=== PATIENT | female | born 1950 | race Caucasian/White ===

== ENCOUNTER 2017-10-14 19:06 | Emergency (ER) | payer MEDICARE, OTHER ==
[~2017-10-14] VITALS: Ht 157.5 cm; Wt 56.7 kg
[~2017-10-14 19:06] MED LIST: ALBU90I INH; ALPR.5 PO; ALPR1 PO; AZIT250 PO; BISA5EC PO; BUSP15 PO; HYDACE10B PO; HYDACE5 PO; LAMO100 PO; LAMO25 PO; LEVSOD125 PO; LOVA20 PO; NEFA100 PO; OXYB5 PO; PROACE100 PO; RXHYDACE PO; Zofran Odt4 MG PO
[2017-10-14] MEDS ORDERED: MSM1000 MG PO (19:26)
[2017-10-14] MEDS ORDERED: CLON.1 PO (19:27)
[2017-10-14] MEDS ORDERED: ACET500 (19:28)
[2017-10-14] MEDS ORDERED: OLOP.1OPSO BOTHEYES (19:28)
[2017-10-14] MEDS ORDERED: Garlic1 EAC1 PO (19:29)
[2017-10-14] MEDS ORDERED: SENN187 PO (19:30)
== END 2017-10-14 22:35 | disposition short-term general hospital (02) ==
LOC: ER 19:06
DX: S73.015A Posterior dislocation of left hip, initial encounter (principal); X58.XXXA Exposure to other specified factors, initial encounter; Z88.2 Allergy status to sulfonamides; Z88.1 Allergy status to other antibiotic agents; Z88.8 Allergy status to other drugs, medicaments and biological substances; Z79.899 Other long term (current) drug therapy; F41.9 Anxiety disorder, unspecified; F32.9 Major depressive disorder, single episode, unspecified; Z87.891 Personal history of nicotine dependence
CPT/HCPCS: 73502; 96374; 96375; 96376; 99285; J2060; J3010

== ENCOUNTER → 2019-09-21 | Outpatient (CLI) | payer MEDICARE, OTHER ==
[~2019-09-21] MED LIST changes: +ACET500; +CLON.1 PO; +Garlic1 EAC1 PO; +MSM1000 MG PO; +OLOP.1OPSO BOTHEYES; +SENN187 PO
== END | disposition home or self-care (01) ==
LOC: LAB EV 12:37 → LAB SHORT 12:37
DX: N39.0 Urinary tract infection, site not specified (principal)
CPT/HCPCS: 87077; 87086; 87147; 87186

== ENCOUNTER → 2019-10-05 | Outpatient (CLI) | payer MEDICARE, OTHER | END | disposition home or self-care (01) | LOC: LAB SHORT 13:31 → OLS 13:31 → LAB FUT 10-03 12:50 | DX: R30.0 Dysuria (principal) | CPT/HCPCS: 87086 ==

== ENCOUNTER → 2019-12-30 | Outpatient (CLI) | payer MEDICARE, OTHER | END | disposition home or self-care (01) | LOC: LAB SRC 14:48 → LAB SHORT 14:48 | DX: N39.0 Urinary tract infection, site not specified (principal) | CPT/HCPCS: 87086 ==

== ENCOUNTER 2020-02-20 08:36 | Inpatient (IN) | payer MEDICARE, OTHER ==
[~2020-02-20] VITALS: Ht 154.9 cm; Wt 48.9 kg
[2020-02-20 09:15] LABS: BASOPHILS ABSOLUTE AUTO 0.04 K/mm3 (0.00-0.23); BASOPHILS PERCENT AUTO 0 % (0-2); EOSINOPHILS ABSOLUTE AUTO 0.01 K/mm3 (0.00-0.68); EOSINOPHILS PERCENT AUTO 0 % (0-6); Hemoglobin 14.1 g/dL (11.5-16.0); IMMATURE GRAN ABSOLUTE AUTO 0.06 K/mm3 (0.00-0.10); IMMATURE GRAN PERCENT AUTO 1 % (0-1); LYMPHOCYTES ABSOLUTE AUTO 1.55 K/mm3 (0.84-5.20); LYMPHOCYTES PERCENT AUTO 13 % (21-46); MONOCYTES ABSOLUTE AUTO 0.64 K/mm3 (0.16-1.47); MONOCYTES PERCENT AUTO 6 % (4-13); Mean Corpuscular HGB 30.6 pg (26.0-34.0); Mean Corpuscular HGB Conc 33.6 g/dL (31.5-36.5); Mean Corpuscular Volume 91 fL (80-100); Mean Platelet Volume 10.1 fL (9.1-12.4); NEUTROPHILS PERCENT AUTO 80 % (41-73); Platelet Count 299 K/mm3 (150-400); RDW Coefficient Variation 13.2 % (11.7-14.2); Red Blood Cell Count 4.61 M/mm3 (3.80-5.20)
[2020-02-20 09:23] LABS: Alanine Aminotransfer (ALT/SGP 6 U/L (12-78); Albumin, Blood 2.7 g/dL (3.4-5.0); Albumin/Globulin Ratio 0.9 (0.8-1.8); Alk Phos 46 U/L (50-136); Anion Gap 15 mmol/L (6-16); Aspartate Aminotrans (AST/SGOT 17 U/L (12-37); Bilirubin, Total 0.5 mg/dL (0.1-1.0); Blood Urea Nitrogen 20 mg/dL (8-24); Bun/Creatinine Ratio 32.7 (12.0-20.0); CO2, Blood 16 mmol/L (21-32); Chloride, Blood 112 mmol/L (98-108); Creatinine, Blood 0.61 mg/dL (0.40-1.00); Globulin, Blood 3.1 g/dL (2.2-4.0); Glomerular Filtration Rate >60 (60-); Glucose, Blood 125 mg/dL (70-99); Potassium, Blood 2.8 mmol/L (3.5-5.5); Sodium, Blood 143 mmol/L (136-145); Total Protein, Blood 5.8 g/dL (6.4-8.2)
[2020-02-20 09:39] LABS: Source, Urine Catheter
[2020-02-20 09:44] LABS: Bilirubin, Urine Neg (Neg); Blood, Urine 2+ (Neg); Glucose Qualitative, Urine Neg (Neg); Ketones, Urine 4+ (Neg); Leukocyte Esterase, Urine 1+ (Neg); Nitrite, Urine Neg (Neg); Protein, Urine 3+ (Neg); Urobilinogen, Urine NORM (Normal)
[2020-02-20 09:51] LABS: Appearance, Urine Clear (Clear); Color, Urine Yellow (P-Yellow)
[2020-02-20 09:53] LABS: Bacteria Few /hpf; Squamous Epithelial Cells Few /hpf (Few)
[2020-02-20 10:19] LABS: Magnesium, Blood 1.7 mg/dL (1.6-2.4); Phosphorus, Blood 2.3 mg/dL (2.5-4.9)
[2020-02-20] MEDS ORDERED: NEFAZODONE HCL PO (14:59)
[2020-02-20] MEDS ORDERED: SUBVENITE200 M1 PO (15:00)
[2020-02-20] MEDS ORDERED: TROSPIUM CHLORI20 M1 PO (15:00)
[2020-02-20] MEDS ORDERED: ZADITOR5 M1 BOTHEYES (15:00)
[2020-02-20] MEDS ORDERED: ROSUVASTATIN CA10 MG PO (15:01)
[2020-02-20] MEDS ORDERED: SYNTHROID100 MC3 PO (15:01)
[2020-02-20 16:05] LABS: Base Excess Venous -10.4 mmol/L; Bicarbonate Venous 17.8 mmol/L (24.0-30.0); PCO2 Venous 20.5 mmHg (38-42); PO2 Venous 179 mmHg (38-42); pH Blood Venous 7.44 (7.34-7.37)
[2020-02-20] MEDS ORDERED: NEFA50 PO ×2 (17:25→17:26)
--- NOTE | 2020-02-20 22:30 | NUR ---
CARDIAC MONITORING PCU CAR SHUNTER REPORTS NSR AT [address] ELEVATION. PT IS CURRENTLY SLEEPING IN ROOM WITH NO ACUTE CHANGES NOTED. WILL CONTINUE TO MONITOR FOR CHANGES.
--- NOTE | 2020-02-21 03:58 | NUR ---
WARP DRESSER SUMMAR ALERT AND ORIENTED. REPORTS NAUSEA AND WEAKNESS, ZOFRAN X1. UNABLE TO TOLERATE PO MEDICATIONS AT THIS TIME. BP CONTINUES TO BE ELEVATED, IV LABETOLOL HELD DUE TO HR OF 60. DENIES PAIN OR DISCOMFORT. BREATHING IS UNLABORED. APPEARED TO SLEEP ALMOST ENTIRE SHIFT. NO ACUTE CHANGES. BED IN LOWEST POSITION WITH CALL LIGHT IN REACH. WILL CONTINUE TO MONITOR AND REPORT TO ONCOMING RN.
[2020-02-21 06:09] LABS: BASOPHILS ABSOLUTE AUTO 0.04 K/mm3 (0.00-0.23); BASOPHILS PERCENT AUTO 0 % (0-2); EOSINOPHILS ABSOLUTE AUTO 0.01 K/mm3 (0.00-0.68); EOSINOPHILS PERCENT AUTO 0 % (0-6); Hematocrit 44.1 % (33.0-51.0); IMMATURE GRAN ABSOLUTE AUTO 0.03 K/mm3 (0.00-0.10); IMMATURE GRAN PERCENT AUTO 0 % (0-1); LYMPHOCYTES ABSOLUTE AUTO 2.22 K/mm3 (0.84-5.20); LYMPHOCYTES PERCENT AUTO 21 % (21-46); MONOCYTES ABSOLUTE AUTO 0.94 K/mm3 (0.16-1.47); MONOCYTES PERCENT AUTO 9 % (4-13); Mean Corpuscular HGB 30.3 pg (26.0-34.0); Mean Corpuscular Volume 89 fL (80-100); Mean Platelet Volume 9.2 fL (9.1-12.4); NEUTROPHILS ABSOLUTE AUTO 7.38 K/mm3 (1.96-9.15); NEUTROPHILS PERCENT AUTO 69 % (41-73); Platelet Count 285 K/mm3 (150-400); RDW Coefficient Variation 13.1 % (11.7-14.2); RDW Standard Deviation 42.3 fL (35.1-46.3); Red Blood Cell Count 4.95 M/mm3 (3.80-5.20); White Blood Cell Count 10.62 K/mm3 (4.00-11.30)
[2020-02-21 06:30] LABS: Alanine Aminotransfer (ALT/SGP 7 U/L (12-78); Albumin, Blood 3.2 g/dL (3.4-5.0); Albumin/Globulin Ratio 0.8 (0.8-1.8); Alk Phos 52 U/L (50-136); Aspartate Aminotrans (AST/SGOT 27 U/L (12-37); Bilirubin, Total 0.6 mg/dL (0.1-1.0); Blood Urea Nitrogen 8 mg/dL (8-24); Bun/Creatinine Ratio 14.6 (12.0-20.0); CO2, Blood 19 mmol/L (21-32); Calcium, Blood 7.9 mg/dL (8.5-10.1); Chloride, Blood 101 mmol/L (98-108); Creatinine, Blood 0.55 mg/dL (0.40-1.00); Globulin, Blood 3.8 g/dL (2.2-4.0); Glomerular Filtration Rate >60 (60-); Glucose, Blood 117 mg/dL (70-99); Potassium, Blood 3.9 mmol/L (3.5-5.5)
[2020-02-21 06:31] LABS: Anion Gap 9 mmol/L (6-16); Sodium, Blood 129 mmol/L (136-145)
--- NOTE | 2020-02-21 08:46 | NUR ---
Patient did not eat breakfast this shift due to not feeling well. RN notified.
--- NOTE | 2020-02-21 13:20 | NUR ---
Patient did not eat lunch this shift. Patient stated she was not feeling well. RN notified.
--- NOTE | 2020-02-21 18:42 | NUR ---
SHIFT SUMMARY- PT IS A/O PLESANT AND COOPERATIVE. SHE IS NPO. HER BLOOD PRESSURES HAVE BEEN ELEVATED. SHE WENT FOR CT THIS MORNING. SHE IS RECIEVING PRN NAUSEA MEDICATION AND BP MEDS. SHE HAS SLEPT FOR MUCH OF THIS SHIFT.
[2020-02-22 05:16] LABS: Anion Gap 10 mmol/L (6-16); Blood Urea Nitrogen 6 mg/dL (8-24); Bun/Creatinine Ratio 9.3 (12.0-20.0); CO2, Blood 24 mmol/L (21-32); Calcium, Blood 8.6 mg/dL (8.5-10.1); Chloride, Blood 95 mmol/L (98-108); Creatinine, Blood 0.64 mg/dL (0.40-1.00); Glomerular Filtration Rate >60 (60-); Glucose, Blood 111 mg/dL (70-99); Potassium, Blood 2.7 mmol/L (3.5-5.5); Sodium, Blood 129 mmol/L (136-145)
--- NOTE | 2020-02-22 06:09 | NUR ---
SHIFT SUMMRY- PT. ALERT WITH INTERMITTENT CONFUSION. C/O N/V T/O THE SHIFT. MEDICATED PER EMAR WITH GOOD EFFECT. PT. REFUSED SCHEDULED PO MEDS OR ANY PO INTAKE LAST NIGHT. BECAME INCREASINGLY CONFUSED DURING THE NIGHT, PULLED OUT IV CATHETER, AND WAS ATTEMPTING TO LEAVE TO GO TO HER "ROOM". PT. WAS EASILY REDIRECTBLE. BP CHECKED Q4 PER ORDER. BP IMPROVED THIS AM. PT. APPEARS TO BE SLEEPING COMFORTABLE IN BED, NO APPARENT DISTRESS NOTED. CALL LIGHT WITHIN REACH, SIDE RAILS UPX2, AND BED ALARM ON FOR SAFETY. WILL CONT TO MONITOR.
--- NOTE | 2020-02-22 11:57 | NUR ---
History, Chart, Medications and Allergies reviewed before start of procedure.Lungs clear T/O to Auscultation. Patient confirms NPO status and agrees with scheduled surgery.
--- NOTE | 2020-02-22 12:07 | NUR ---
02/22/20 1207 Gema Gamez History, Chart, Medications and Allergies reviewed before start of procedure. Patient confirms NPO status and agrees with scheduled surgery. PATIENT DETERMINED TO BE ASA APPROPRIATE FOR PROPOFOL SEDATION PRIOR TO START OF PROCEDURE BY DR. HILARIO. 3-LEAD EKG REVIEWED WITH PHYSICIAN PRIOR TO START OF PROCEDURE. MONITOR INTACT WITH CONTINUOUS PULSE OXIMETRY AND INTERMITTENT BP.
--- NOTE | 2020-02-22 12:47 | NUR ---
DR HILARIO AT BEDSIDE SPEAKING WITH PATIENT.
--- NOTE | 2020-02-22 16:39 | NUR ---
SHIFT SUMMARY PATIENT DENIES PAIN, AND SHORTNESS OF BREATH. PATIENT MEDICATED X2 FOR NAUSEA. PATIENT WORKED WITH PT/OT TODAY. PATIENT UP SBA W/FWW TO BR. PATIENT HAD EGD TODAY, NO ACUTE PROCESS FOUND. STRICTURE DILATED AND BIOPSIES TAKEN. PATIENT HAD DIFFICULT TIME TOLERATING IV POTASSIUM EVEN AT SLOWED RATE. CALL TO DR. LACY, NEW ORDER FOR PO LIQUID POTASSIUM GIVEN.
--- NOTE | 2020-02-22 17:23 | NUR ---
Initial spiritual care note: Mrs. Parrish is a analia woman who tells me she is hopeful she'll get better. She is very happy in her marriage and feels well-loved and supported. I facilitated an exploration of her usha and offered prayer. She appeared uplifted by our conversation and was appreciaitve. I will remain available.
[2020-02-23 05:41] LABS: Anion Gap 11 mmol/L (6-16); Blood Urea Nitrogen 7 mg/dL (8-24); Bun/Creatinine Ratio 9.9 (12.0-20.0); CO2, Blood 26 mmol/L (21-32); Calcium, Blood 8.5 mg/dL (8.5-10.1); Chloride, Blood 95 mmol/L (98-108); Creatinine, Blood 0.71 mg/dL (0.40-1.00); Glomerular Filtration Rate >60 (60-); Glucose, Blood 96 mg/dL (70-99); Sodium, Blood 132 mmol/L (136-145)
--- NOTE | 2020-02-23 06:20 | NUR ---
SHIFT SUMMARY PT IS A 69 Y/O FEMALE, ADMITTED FOR WEAKNESS AND INTRACTABLE N/V. SHE IS A&O X 3, PT REPORTED NAUSEA THROUGH THE NIGHT, AND WAS MEDICATED TWICE WITH PRN REGLAN, AND REFUSED HER HS ORAL MEDS. NO COMPLAINTS OF ACUTE PAIN OR SOB. VITAL SIGNS STABLE. TELE SHOWED NSR IN THE 70S. NO OTHER ACUTE CHANGES IN PT CONDITION NOTED. WILL CONTINUE TO MONITOR AND TREAT PER EMAR UNTIL HAND OFF TO DAY SHIFT RN.
--- NOTE | 2020-02-23 16:49 | NUR ---
Spiritual care note: Eneida states she still feels weak and this bothers her. She is concerned about her future. I provided gentle admitting counselor and spiritual direction. Prayer was well received. Eneida appeared a bit brighter when visit concluded. Conversation and companionship was helpful. I will continue to see Eneida in coming days.
--- NOTE | 2020-02-23 17:22 | NUR ---
SHIFT SUMMARY PATIENT DENIES PAIN, MEDICATED X3 FOR NAUSEA WITH IV PRN'S. REFUSED ORAL MEDICATION EXCEPT AMLODIPINE THIS AM. POOR PO INTAKE. NAPPING OFF AND ON DURING SHIFT. IV POTASSIUM REPLACEMENT COMPLETED. PATIENT UP SBA TO BR W/FWW.
[2020-02-24 05:36] LABS: Anion Gap 9 mmol/L (6-16); Blood Urea Nitrogen 10 mg/dL (8-24); Bun/Creatinine Ratio 16.1 (12.0-20.0); CO2, Blood 24 mmol/L (21-32); Calcium, Blood 8.4 mg/dL (8.5-10.1); Chloride, Blood 96 mmol/L (98-108); Creatinine, Blood 0.62 mg/dL (0.40-1.00); Glomerular Filtration Rate >60 (60-); Glucose, Blood 88 mg/dL (70-99); Potassium, Blood 3.5 mmol/L (3.5-5.5); Sodium, Blood 129 mmol/L (136-145)
--- NOTE | 2020-02-24 07:00 | NUR ---
SHIFT SUMMARY PATIENT STAYED IN BED ALL NIGHT AND DID NOT GET UP. SHE REPORTS NOT BEING ABLE TO SLEEP OVERNIGHT DUE TO THE NAUSEA THAT SHE WAS FEELING. PATIENT MEDICATED PER EMAR. SHE HAD NO COMPLAINTS OF PAIN. IV PATENT AND FLUSHED, BED IN LOWEST POSITION WITH WHEELS LOCKED AND ALARM ON. CALL LIGHT WITHIN REACH. REPORT GIVEN TO ONCOMING RN.
[2020-02-24] MEDS ORDERED: AMLO10 PO (14:54)
[2020-02-24] MEDS ORDERED: MIRT15ST PO (14:55)
[2020-02-24] MEDS ORDERED: METO10 PO (14:55)
[2020-02-24] MEDS ORDERED: PANT20 PO (14:56)
[2020-02-24] MEDS ORDERED: ONDA4ODT MM (14:56)
[2020-02-24] MEDS ORDERED: POTA10T PO (14:57)
--- NOTE | 2020-02-24 16:04 | NUR ---
DISCHARGE: PATIENT AND VERBALIZED UNDERSTANDING OF DISCHARGE INSTRUCTIONS. PATIENT AGAIN, STRONGLY ENCOURAGED BY THIS RN TO EAT SMALL, FREQUENT MEALS, AND WAS AGREEABLE. ALL PERSONAL BELONGINGS IN PT POSSESSION AT TIME OF DISCHARGE.
== END 2020-02-24 16:06 | disposition home or self-care (01) | DRG 381 ==
LOC: ER 08:36 → MEDS 08:37 → ERHOLD 08:37 → MEDS 17:10 → ENPENDDIS 02-24 14:04 → MEDS 02-24 16:06
PROVIDERS: Emergency Medicine; Internal Medicine; Internal Medicine Gastroenterology; Nurse Practitioner Acute Care; Physician Assistant; ADMIT Family Medicine
PROC: 0D748ZZ Dilation of Esophagogastric Junction, Via Natural or Artificial Opening Endoscopic (ICD-10-PCS; 2020-02-22)
PROC: 0DB58ZX Excision of Esophagus, Via Natural or Artificial Opening Endoscopic, Diagnostic (ICD-10-PCS; principal; 2020-02-22 12:00)
PROC: 0DB68ZX Excision of Stomach, Via Natural or Artificial Opening Endoscopic, Diagnostic (ICD-10-PCS; 2020-02-22 12:00)
DX: K22.70 Barrett's esophagus without dysplasia (principal); E87.2 Acidosis; E46 Unspecified protein-calorie malnutrition; E87.1 Hypo-osmolality and hyponatremia; Z68.1 Body mass index [BMI] 19.9 or less, adult; I10 Essential (primary) hypertension; I16.0 Hypertensive urgency; Z20.828 Contact with and (suspected) exposure to other viral communicable diseases; E03.9 Hypothyroidism, unspecified; G60.0 Hereditary motor and sensory neuropathy; K22.2 Esophageal obstruction; E87.6 Hypokalemia; E83.42 Hypomagnesemia; M19.90 Unspecified osteoarthritis, unspecified site; F32.9 Major depressive disorder, single episode, unspecified; F51.04 Psychophysiologic insomnia; Z66 Do not resuscitate; E86.9 Volume depletion, unspecified; Z87.891 Personal history of nicotine dependence
CPT/HCPCS: 36415; 71250; 74018; 74176; 80048; 80053; 80175; 81001; 82803; 83690; 83735; 84100; 84439; 84443; 85025; 87086; 88305; 88312; 88342; 93005; 93010; 96361; 96365; 96366; 96367; 96372-59; 96375; 96376; 97110; 97162; 97166; 97530; 97535; 99285-25; C1726; C9113; G0378; J0780; J1650; J2001; J2405; J2550; J2704; J2765; J3475; J3480; J7030; J7042; J7050; J7060; J7120; P9612; U0002

== ENCOUNTER 2020-03-17 13:26 | Emergency (ER) | payer MEDICARE, OTHER ==
[~2020-03-17] VITALS: Ht 157.5 cm; Wt 43.1 kg
[~2020-03-17 13:26] MED LIST changes: +AMLO10 PO; +METO10 PO; +MIRT15ST PO; +NEFA50 PO; +NEFAZODONE HCL PO; +ONDA4ODT MM; +PANT20 PO; +POTA10T PO; +ROSUVASTATIN CA10 MG PO; +SUBVENITE200 M1 PO; +SYNTHROID100 MC3 PO; +TROSPIUM CHLORI20 M1 PO; +ZADITOR5 M1 BOTHEYES
[2020-03-17 14:01] LABS: BASOPHILS ABSOLUTE AUTO 0.01 K/mm3 (0.00-0.23); BASOPHILS PERCENT AUTO 0 % (0-2); EOSINOPHILS ABSOLUTE AUTO 0.01 K/mm3 (0.00-0.68); EOSINOPHILS PERCENT AUTO 0 % (0-6); Hematocrit 40.9 % (33.0-51.0); Hemoglobin 13.3 g/dL (11.5-16.0); IMMATURE GRAN ABSOLUTE AUTO 0.08 K/mm3 (0.00-0.10); IMMATURE GRAN PERCENT AUTO 1 % (0-1); LYMPHOCYTES ABSOLUTE AUTO 0.95 K/mm3 (0.84-5.20); LYMPHOCYTES PERCENT AUTO 10 % (21-46); MONOCYTES ABSOLUTE AUTO 0.31 K/mm3 (0.16-1.47); MONOCYTES PERCENT AUTO 3 % (4-13); Mean Corpuscular HGB 29.5 pg (26.0-34.0); Mean Corpuscular HGB Conc 32.5 g/dL (31.5-36.5); Mean Corpuscular Volume 91 fL (80-100); Mean Platelet Volume 9.3 fL (9.1-12.4); NEUTROPHILS ABSOLUTE AUTO 8.34 K/mm3 (1.96-9.15); NEUTROPHILS PERCENT AUTO 86 % (41-73); NRBC ABSOLUTE 0.03 K/mm3 (0.00-0.02); NRBC Auto 0.3 /100 WBC (0.0-0.2); Platelet Count 435 K/mm3 (150-400); RDW Coefficient Variation 14.6 % (11.7-14.2); RDW Standard Deviation 48.2 fL (35.1-46.3); Red Blood Cell Count 4.51 M/mm3 (3.80-5.20)
[2020-03-17 15:33] LABS: Source, Urine Clean Catch
[2020-03-17 15:44] LABS: Appearance, Urine Cloudy (Clear); Bilirubin, Urine Neg (Neg); Blood, Urine 5+ (Neg); Color, Urine Yellow (P-Yellow); Glucose Qualitative, Urine Neg (Neg); Ketones, Urine 4+ (Neg); Leukocyte Esterase, Urine 3+ (Neg); Nitrite, Urine Neg (Neg); Protein, Urine 3+ (Neg); Specific Gravity, Urine 1.025 (1.003-1.022); Urobilinogen, Urine NORM (Normal)
[2020-03-17 16:05] LABS: Red Blood Cells, Urine 25-50 /hpf (0-2); Squamous Epithelial Cells Rare /hpf (Few)
[2020-03-17 16:06] LABS: Amorphous Mod (0-Heavy); Bacteria Mod /hpf; Renal Epithelial Rare /hpf (0-Rare); Transitional Epithelial Cells Few /hpf (0-Rare)
[2020-03-17 16:44] LABS: Alanine Aminotransfer (ALT/SGP 13 U/L (12-78); Albumin, Blood 3.4 g/dL (3.4-5.0); Albumin/Globulin Ratio 0.8 (0.8-1.8); Alk Phos 72 U/L (50-136); Anion Gap 18 mmol/L (6-16); Aspartate Aminotrans (AST/SGOT 21 U/L (12-37); Bilirubin, Total 0.9 mg/dL (0.1-1.0); Blood Urea Nitrogen 22 mg/dL (8-24); Bun/Creatinine Ratio 37.5 (12.0-20.0); CO2, Blood 18 mmol/L (21-32); Chloride, Blood 107 mmol/L (98-108); Creatinine, Blood 0.59 mg/dL (0.40-1.00); Globulin, Blood 4.1 g/dL (2.2-4.0); Glomerular Filtration Rate >60 (60-); Glucose, Blood 113 mg/dL (70-99); Potassium, Blood 3.3 mmol/L (3.5-5.5); Sodium, Blood 143 mmol/L (136-145); Total Protein, Blood 7.5 g/dL (6.4-8.2)
[2020-03-17] MEDS ORDERED: PROC5 PO (17:04)
[2020-03-17] MEDS ORDERED: CEPH500 PO (17:04)
== END 2020-03-17 17:20 | disposition home or self-care (01) ==
LOC: ER 13:26
PROVIDERS: Emergency Medicine
DX: E86.0 Dehydration (principal); N39.0 Urinary tract infection, site not specified; E87.6 Hypokalemia; I10 Essential (primary) hypertension; E03.9 Hypothyroidism, unspecified; F41.9 Anxiety disorder, unspecified; F32.9 Major depressive disorder, single episode, unspecified; Z87.891 Personal history of nicotine dependence; Z88.0 Allergy status to penicillin; Z79.899 Other long term (current) drug therapy
CPT/HCPCS: 51701; 80053; 81001; 83690; 84439; 84443; 85025; 87077; 87086; 87186; 93005; 93010; 96361-59; 96365-59; 96375-59; 99283-25; J0696; J0780; J2405; J7030